=== PATIENT | female | born 1995 | race Caucasian/White ===

== ENCOUNTER 2022-05-06 06:59 | Inpatient (IN) | payer BC, OTHER ==
[~2022-05-06] VITALS: Ht 172.7 cm; Wt 75.9 kg
[2022-05-06] VITALS (51 sets, daily range): BP systolic 109–149; BP diastolic 58–106; PULSE 63–121; TEMP 97.7–98.8
[2022-05-06 08:06] LABS: BASO % 0.4 % (0.0-2.0); EOS # 0.1 K/mm3 (0.0-0.7); EOS % 0.8 % (0.0-4.0); GRAN # 4.9 K/mm3 (1.4-6.5); GRAN % 68.7 % (42.2-75.2); HEMATOCRIT 37.9 % (37.0-47.0); HEMOGLOBIN 13.4 g/dl (12.5-16.0); LYMPH # 1.7 K/mm3 (1.2-3.4); LYMPH % 23.4 % (20.0-51.0); MEAN CELL VOLUME 91 fl (80.0-100.0); MEAN CORPUSCULAR HEMOGLOBIN 32 pg (27-31); MEAN CORPUSCULAR HGB CONC 35 g/dl (33.0-37.0); MONO # 0.4 K/mm3 (0.1-0.6); MONO % 6.1 % (1.7-9.3); PLATELET COUNT 237 K/mm3 (130-400); RED BLOOD COUNT 4.17 M/mm3 (4.10-5.30); REDCELL DISTRIBUTION WIDTH-CV 11.9 % (11.5-14.5)
--- NOTE | 2022-05-06 08:52 | NUR ---
0705 PATIENT HERE FOR COMPLAINTS OF SROM AT 0600, LARGE AMOUNT CLEAR FLUID NOTED NO ODOR NOTED. ASSESSMENT COMPLETED. VS WNL. EFM ON FHT 120 BABY VERY ACTIVE. SVE 0/50/-3. PATIENT HAS PLAN, COPIED AND PUT ON CHART. PATIENT DOES NOT WANT PITOCIN. DR DE JESUS CALLED AND UPDATED ON ALL ABOVE INFORMATION. ORDERS TO ADMIT PATIENT AND PATIENT MAY WALK OR DUE NIPPLE STIM TO START CONTRACTIONS.
--- NOTE | 2022-05-06 09:00 | NUR ---
0800 PATIENT SITTING UP IN BED, WITH BREAST PUMP DOING NIPPLE STIM AT THIS TIME. IV STARTED IN LEFT WRIST. DR DE JESUS AT BEDSIDE FOR US FOR PRESENTING PART.
--- NOTE | 2022-05-06 10:19 | NUR ---
1000 PATIENT SITTING ON BIRTHNG BALL AT THIS TIME. CONTRACTIOSN IRREGULAR 1015 PATIENT SITTING UP IN BED WITH BREAST PUMP FOR NIPPLE STIMULATE PER PROTCOL. TOLERATE WELL.
--- NOTE | 2022-05-06 10:37 | NUR ---
2511 patient up ambulate in halls
[2022-05-06] MEDS ORDERED: PRENATAL FORMU1 EAC3 PO (12:16)
--- NOTE | 2022-05-06 13:53 | NUR ---
1200 PATIENT STANDS AT BEDSIDE. STATES SHE CAN FEEL CONTRACTIONS GETTING STRONGER.
--- NOTE | 2022-05-06 13:56 | NUR ---
1300 DR DE JESUS AT BEDSIDE. SVE /-3, ORDERS GIVEN TO START PITOCIN.
--- NOTE | 2022-05-06 18:20 | NUR ---
1820- BEDSIDE REPORT CHARTED, CARE ASSUMED. 182- PT ASSISTED TO SQUAT POSITION IN BED LEANING OVER HEAD OF BED. MONITORS ADJUSTED. PT DENIES FURTHER NEEDS. 184- PT ASSISTED UP TO BATHROOM. 185- PT BACK TO BED AND ON MONITORS.
--- NOTE | 2022-05-06 19:15 | NUR ---
1914- NURSE TO ROOM, PT WISHES TO CHANGE POSITION. 1919- PT ASSISTED TO RIGHT LATERAL WITH PEANUT BALL. POSITIONED FOR COMFORT. DISCUSSED CHANGING POSITION IN 30 MINUTES TO OTHER SIDE. 1949- NURSE TO ROOM TO CHANGE POSITIONS. DISCUSSED WITH PT THAT CONTRACTIONS SEEM TO BE SPACING OUT AND PT AGREES THAT IS HOW SHE FEELS WELL. SHE WANTS TO USE BATHROOM AND THEN IS OPEN TO SVE IN ORDER TO HELP DETERMINE WHETHER AN INCREASE IN PITOCIN IS NEEDED. 1951- PT UP TO BATHROOM. 1955- PT BACK TO BED. 1999- SVE BY THIS NURSE /-2. DR DE JESUS CALLS NURSE AT THIS TIME AND IS UPDATED WELL, SEE NOTIFICATION. 2004- PT POSITIONED IN LEFT LATERAL WITH PEANUT BALL. POSITIONED FOR COMFORT. DENIES FURTHER NEEDS AT THIS TIME.
--- NOTE | 2022-05-06 20:35 | NUR ---
2034- PT UP TO BATHROOM. 2039- PT BACK FROM BATHROOM, WISHES TO STAND AT BEDSIDE. CHAIR PROVIDED AND PT SHOWED DIFFERENT LUNGE POSITIONS SHE CAN TRY WHILE STANDING AT BEDSIDE. 2114- PT READY TO GET BACK IN BED. POSITIONED IN TAILOR SITTING UP WITH PEANUT BALL UNDER FEET. SHOWN HOW TO PROVIDE PRESSURE FROM SIDES OF HIPS. PT AGREEABLE WITH THIS POSITION. 2149- PT UP TO BATHROOM AGAIN. 2154- PT BACK TO BED AND IN SMOOTH POSITION. 2224- PT REPORTS FEELING SOME PRESSURE WITH CONTRACTIONS AND INCREASED INTENSITY. SVE BY THIS NURSE . PT STILL SITTING UP IN BED, SMOOTH POSITION. 2229- DR DE JESUS CALLED AND UPDATED CHARTED.
--- NOTE | 2022-05-06 22:35 | NUR ---
2235- PT UP TO BATHROOM 2243- PT ON BIRTHING BALL. DIFFICULT TO MONITOR EFM DUE TO POSITION. NURSE AT BEDSIDE. 2252- TRACING MATERNAL HR. 2308- TRACING MATERNAL HR INTERMITTENTLY. 2320- PT FEELING MORE PRESSURE, REQUESTS SVE. SVE 6-7/90/0. PLAN OF CARE AND TRANSITION LABOR DISCUSSED AND QUESTIONS ANSWERED.
--- NOTE | 2022-05-06 23:20 | NUR ---
2320- PT BACK TO BED AND SITTING UP SMOOTH. 0035- PT FEELING MORE PRESSURE. SVE BY THIS NURSE -/0. PT UP TO BATHROOM AFTER EXAM. 0040- PT BACK TO BED, POSITIONED IN RIGHT TUCK WITH YELLOW PEANUT BALL. NURSE AT BEDSIDE. 0105- PT MORE UNCOMFORTABLE AND FEELING MORE PRESSURE. CHANGED TO LEFT TUCK POSITION WITH YELLOW PEANUT BALL. 0115- PT FEELING URGE TO PUSH. SVE BY THIS NURSE 8-/+1. PT WISHES TO CHANGE TO KNEE CHEST POSITION AND IS ASSISTED WITH THAT. 0120- 0140- PT IN KNEE CHEST FOR COMFORT, DIFFICULT TO TRACE EFM. INTERMITTENTLY TRACES MATERNAL HEART RATE. NURSE AT BEDSIDE HOLDING MONITORS. 0150- PT WANTING TO PUSH. SVE BY THIS NURSE COMPLETE AND +2. PT WISHES TO PUSH IN KNEE CHEST. SHE IS ASSISTED BACK TO THIS POSITION. 0152- PT BEGINS COACHED PUSHING IN KNEE CHEST. 0203- PT WANTS TO SEE PROGRESS BETTER SO SHE CHANGES TO PUSHING IN BED WITH SQUAT BAR. 0205- DR DE JESUS AT BEDSIDE AND ASSESSES PROGRESS. PT CONTINUES TO PUSH WITH SQUAT BAR. 0230- PT STOPS USING SQUAT BAR AND JUST USES FOOTPLATES FOR PUSHING. DR DE JESUS STILL AT BEDSIDE. 0252- SPONTANEOUS VAGINAL DELIVERY OF VIABLE FEMALE, VIGOROUS, TO MOTHER'S ABDOMEN AND CARE OF NURSERY STAFF. 0256- SPONTANEOUS DELIVERY OF PLACENTA, EXAMINED BY DR DE JESUS. REPAIR IN PROGRESS. 0310- REPAIR COMPLETE. PERICARE AND ICEPACK PROVIDED. FEET DOWN FROM FOOTPLATES AND RECOVERY STARTED.
[2022-05-07] VITALS (18 sets, daily range): BP systolic 106–149; BP diastolic 52–91; PULSE 68–150; TEMP 97.3–99.5
--- NOTE | 2022-05-07 05:45 | NUR ---
0545- IV TO SALINE LOCK. PT ASSISTED TO AMBULATE TO BATHROOM. ABLE TO VOID 600ML WITHOUT DIFFICULTY. PT INSTRUCTED ON AND PERFORMS PERICARE. CLEAN GOWN, PAD, AND PANTIES PROVIDED. PT INSTRUCTED ON USE OF TUCKS PADS AND ICEPACKS. 0550- PT AMBULATES TO ROOM 215. BELONGINGS AND BABY WITH PT. PT ORIENTED TO ROOM AND CALL LIGHTS. PLAN OF CARE DISCUSSED AND QUESTIONS ANSWERED. EDUCATION PACKET GIVEN. PT DENIES FURTHER NEEDS AT THIS TIME.
[2022-05-07] MEDS ORDERED: IBU600 MG PO (08:32)
--- NOTE | 2022-05-07 09:36 | NUR ---
Initial visit attempt; Family resting, [employer]igator [employer] left card of congratulations to family for the of their daughter and information regarding the availability of Spiritual Care at our hospital.
[2022-05-08 07:11] LABS: HEMATOCRIT 30.2 % (37.0-47.0); HEMOGLOBIN 10.6 g/dl (12.5-16.0)
[2022-05-08 07:59] VITALS: BP 119/70; PULSE 70; TEMP 97.3
[2022-05-08 16:40] VITALS: BP 125/72; PULSE 76; TEMP 97.9
[2022-05-08 19:40] VITALS: BP 134/78; PULSE 78; TEMP 98.8
[2022-05-09 08:25] VITALS: BP 112/68; PULSE 65; TEMP 97.5
--- NOTE | 2022-05-09 15:45 | NUR ---
Discharge instructions reviewed. Pt to boarders status.
== END 2022-05-09 15:45 | disposition home or self-care (01) | DRG 807 ==
LOC: LDRO 06:59 → LDR 07:25 → OB 07:25
PROVIDERS: ADMIT Obstetrics & Gynecology
PROC: 10E0XZZ Delivery of Products of Conception, External Approach (ICD-10-PCS; principal; 2022-05-06)
PROC: 0KQM0ZZ Repair Perineum Muscle, Open Approach (ICD-10-PCS; 2022-05-06)
DX: O48.0 Post-term pregnancy (principal); Z37.0 Single live birth; O22.03 Varicose veins of lower extremity in pregnancy, third trimester; I83.90 Asymptomatic varicose veins of unspecified lower extremity; O70.1 Second degree perineal laceration during delivery; Z3A.41 41 weeks gestation of pregnancy
CPT/HCPCS: J2590; J7120

== ENCOUNTER 2024-03-03 14:41 | Inpatient (IN) | payer OTHER ==
[~2024-03-03] VITALS: Ht 175.3 cm; Wt 76.4 kg
[2024-03-03] VITALS (7 sets, daily range): BP systolic 122–134; BP diastolic 58–80; PULSE 70–90; TEMP 97.5–98.5
[~2024-03-03 14:41] MED LIST: IBU600 MG PO; PRENATAL FORMU1 EAC3 PO
--- NOTE | 2024-03-03 14:45 | NUR ---
875784.0, G2L1 arrives on unit with c/o ctx since this am and srom at 1415. Ambulatory to LDR6 with spouse. Oriented to room and plan of care. Changes into clean gown. Reports normal movement and ctx every 5min. Denies VB. [id number] applied and tracing. VS obtained. Assessment completed. SVE 3-4/80/-2, clear fluid noted with exam. Dr. Herrera on unit and reviews chart and fhr strips. Updated on patient to include srom and ctx. Orders to admit. 1500Dr. Herrera at bedside and reviews plan of care with pt and spouse who verbalize understanding. 1505Consent forms explained and signed. IV to left FA. Routine labs obtained. 1535 EFM off and pt ambulatory in [place].
[2024-03-03] MEDS ORDERED: LR 1,000 ML IV SCH (15:15)
[2024-03-03 15:59] LABS: BASO % 0.4 % (0.0-2.0); EOS # 0.1 K/mm3 (0.0-0.7); EOS % 0.7 % (0.0-4.0); GRAN # 5.3 K/mm3 (1.4-6.5); GRAN % 72.6 % (42.2-75.2); HEMOGLOBIN 12.1 g/dl (12.5-16.0); LYMPH # 1.5 K/mm3 (1.2-3.4); LYMPH % 20.4 % (20.0-51.0); MEAN CELL VOLUME 93 fl (80.0-100.0); MEAN CORPUSCULAR HEMOGLOBIN 32 pg (27-31); MEAN CORPUSCULAR HGB CONC 35 g/dl (33.0-37.0); MEAN PLATELET VOLUME 10.4 fl (7.4-10.4); MONO # 0.4 K/mm3 (0.1-0.6); MONO % 5.8 % (1.7-9.3); PLATELET COUNT 201 K/mm3 (130-400); RED BLOOD COUNT 3.77 M/mm3 (4.10-5.30); REDCELL DISTRIBUTION WIDTH-CV 12.3 % (11.5-14.5)
[2024-03-03] MEDS ORDERED: LR & Oxytocin 500 ML IV SCH (20:30)
--- NOTE | 2024-03-03 20:30 | NUR ---
2013: SVE BY DR. EDWARDS. PT UNCHANGED OVER THE PAST [address] EDWARDS RECOMMENDS STARTING PIT TO AGUMENT LABOR. PT VERBALIZED UNDERSTANDING AND CONSENT. 2024: RN AT BS TO PROGRAM/START PIT INFUSION. PT STATES SHE WOULD LIKE TO SPEAK WITH DR. EDWARDS AGAIN TO DISCUSS OPTIONS OF NIPPLE STIMULATION INSTEAD OF BEGING PTI INFUSION. PT CURRENTLY REFUSING PIT UNTIL SPEAKING WITH DR. EDWARDS 2027: DR. EDWARDS INFORMED OF PT REQUEST TO SPEAK WITH HER AGAIN. DR. EDWARDS REQUEST TO HAVE A BREASTPUMP BROUGHT INTO THE ROOM. 2029: DR. EDWARDS AND RN AT BS WITH BREASTPUMP AND PUMP KIT. PT EDUCATED ON POLICY FOR NIPPLE STIMULATION. PT VERBALIZED UNDERSTANDING. RN PROVIDED PUMP SET UP AND EDUCATION. PT VERBALIZED UNDERSTANDING. 2032: NIPPLE STIMULATION BEGUN ON RIGHT BREAST.
[2024-03-03] MEDS ORDERED: traZODone 50 MG TAB PO PRN (21:00)
[2024-03-03] MEDS ORDERED: oxyCODONE 5 MG TAB PO PRN (21:15)
[2024-03-03] MEDS ORDERED: Measles/Mumps/Rubella Virus Vaccine Live w Diluent 0.5 ML VIAL SQ SCH (21:15)
[2024-03-03] MEDS ORDERED: Magnes Hydrox (MOM) 80 MG/ML 30 ML CUP PO PRN (21:15)
[2024-03-03] MEDS ORDERED: Loratadine 10 MG TAB PO PRN (21:15)
[2024-03-03] MEDS ORDERED: Mag/Al Hydrox/Simeth Susp 30 ML CUP PO PRN (21:15)
[2024-03-03] MEDS ORDERED: Witch Hazel 50% Pads Bulk TUB TP PRN (21:15)
[2024-03-03] MEDS ORDERED: Phenylephrine/Mineral Oil/Petrolatum 57 GM TUBE RC PRN (21:15)
[2024-03-03] MEDS ORDERED: Acetaminophen 500 MG TAB PO PRN (21:15)
[2024-03-03] MEDS ORDERED: Naloxone 0.4 MG/ML VIAL IV PRN (21:15)
[2024-03-03] MEDS ORDERED: Ibuprofen 800 MG TAB PO SCH (22:00)
--- NOTE | 2024-03-03 22:30 | NUR ---
1018: DR. EDWARDS AND RN TO BS. PT VERBALIZED NEED TO PUSH. 1021: PT TRANSITIONED TO LITHOTOMY POSITION WITH USE OF FOOT PEDALS. PUSHING INSTRUCTIONS PROVIDED BY DR. EDWARDS 1024: PUSHING BEGAN 1026: OF VIABLE MALE . DR. EDWARDS ATTENDING. PLACED ONTO MATERNAL ABDOMEN TO AWAITING NURSERY RN. BULB SUCTION BY DR. EDWARDS. WARM, DRY, STIM BY NURSERY RN Murray ÁLVAREZ. DELAYED CORD CLAMPING FOR 1 MIN. CORD DOUBLE CLAMPED BY DR. EDWARDS AND CUT BY FOB. INFANT MOVED [id number] ON MATERNAL CHEST. 1030: SPONTANEOUS PLACENTA DELIVERY WITH ACTIVE MANAGEMENT FROM DR. EDWARDS. PP PIT STARTED PER PROTOCOL. FUNDAL RUB COMPLETED BY RN. 1031: REPAIR OF 2ND DEGREE PERINEAL LAC UNDER LOCAL BY DR. EDWARDS 1037: REPAIR COMPLETED. PT CLEANED AND ICE-PAD PLACED BY RN.
[2024-03-04] VITALS (7 sets, daily range): BP systolic 109–124; BP diastolic 57–72; PULSE 67–89; TEMP 97.9–98.2
[2024-03-04] MEDS ORDERED: Methylergonovine 0.2 MG/ML 1 ML AMPUL IM ONE (02:00)
[2024-03-04] MEDS ORDERED: Sennosides/Docusate 8.6-50 MG TAB PO SCH (08:00)
--- NOTE | 2024-03-04 23:50 | NUR ---
PT WAS GIVEN ALL HER WRITTEN AND VERBAL DISCHARGE INSTRUCTIONS. PT VERBALIZED UNDERSTANDING TO CALL AND GET APPT FOR HER AND THE BABY WITHIN THE NEXT 1-2 DAYS. PT AMB OUT TO PERSONAL CAR WITH BABY IN THE CAR SEAT, AMB WITH HER. TITUS ROY ASSISTED PT OUT TO CAR.
== END 2024-03-04 23:50 | disposition home or self-care (01) | DRG 807 ==
LOC: LDRO 14:41 → LDR 15:02 → EDSTATUS 16:01 → OB 03-04 02:00
PROVIDERS: Obstetrics & Gynecology; ADMIT Obstetrics & Gynecology
PROC: 10E0XZZ Delivery of Products of Conception, External Approach (ICD-10-PCS; principal; 2024-03-03)
PROC: 0KQM0ZZ Repair Perineum Muscle, Open Approach (ICD-10-PCS; 2024-03-03)
DX: O48.0 Post-term pregnancy (principal); Z37.0 Single live birth; Z3A.40 40 weeks gestation of pregnancy; O76 Abnormality in fetal heart rate and rhythm complicating labor and delivery; O70.1 Second degree perineal laceration during delivery; O69.81X0 Labor and delivery complicated by cord around neck, without compression, not applicable or unspecified
CPT/HCPCS: J2210; J2590; J7120